=== PATIENT | female | born 1965 | race Caucasian/White ===

== ENCOUNTER → 2020-04-02 | Outpatient (CLI) | payer OTHER ==
--- NOTE | 2020-04-02 13:29 | MR ---
EXAMINATION TYPE: MR tspine/lspine wo con DATE OF EXAM: 04/02/2020 COMPARISON: None HISTORY: Dorsalgia, pain lower left leg, pain between shoulders TECHNIQUE: Multiplanar, multisequence imaging of the thoracic and lumbar spine is performed without I V contrast. FINDINGS: Thoracic spine MRI: There is a spinal curvature convex right centered at the midthoracic level, there is multilevel spondylosis present, minimal endplate discogenic marrow signal changes. Some loss of d isc height signal is present at T5-6, T6-7, T7-8. There is no significant spinal stenosis or foramina l encroachment. Thoracic cord signal is normal. Thoracic vertebral bodies show preserved height. T6-7 there is a left posterior paracentral disc herniation causing anterolateral mass effect on the t hecal sac, possibly contact with the thoracic cord. T7-8 and T8-9 shows posterior extension of disc bulge causing mild anterior mass effect on the thecal sac. Mild facet arthropathy changes are present at the lower thoracic spine. IMPRESSION: Spinal curvature, degenerative disc disease and facet arthropathy Lumbar spine MRI: Lumbar vertebral bodies show preserved height and alignment. There is loss of disc height signal greatest at L5-S1, is associated endplate discogenic marrow signal change. The conus is at L1 shows an unremarkable appearance. No significant spinal stenosis. L5-S1: There is a posterior central disc bulge causing mild anterior mass effect on the thecal sac. F acet arthropathy changes are present. Circumferential extension of an point disc complex encroaches u michael the neural foramina. L4-5: Facet arthropathy with hypertrophy ligamentum flavum causes posterior lateral mass effect on th e thecal sac. Circumferential disc bulge causes some foraminal encroachment greater on the right. Mil d anterior mass effect on the thecal sac due to posterior disc bulge. L3-4, L2-3, L1-2: Unremarkable IMPRESSION: Degenerative disc disease and facet arthropathy.
== END | disposition home or self-care (01) ==
LOC: RADMRIMAIN 08:59
PROVIDERS: ATTEND Physician Assistant
DX: M51.34 Other intervertebral disc degeneration, thoracic region (principal); M51.36 Other intervertebral disc degeneration, lumbar region; M47.814 Spondylosis without myelopathy or radiculopathy, thoracic region; M47.816 Spondylosis without myelopathy or radiculopathy, lumbar region; M43.8X4 Other specified deforming dorsopathies, thoracic region
CPT/HCPCS: 72146; 72148

== ENCOUNTER 2023-03-16 13:57 | Emergency (ER) | payer OTHER ==
--- NOTE | 2023-03-16 14:23 | ED ---
Back Pain HPI - General Chief Complaint: Back Pain/Injury Stated Complaint: Back pain Time Seen by Provider: 03/16/23 14:20 Source: patient, RN notes reviewed Mode of arrival: ambulatory Limitations: no limitations - History of Present Illness Initial Comments: This is a 57 year old female who presents to the emergency department for back pain and right shoulder stiffness. She follows with neurology for chronic back pain related to multiple slipped discs in the thoracic spine. Every once in a while she states that she develops a tightness or a "knot" on her right side. She typically takes Advil for pain relief, however it does not manage that pain well, and she is worried about something else causing her symptoms. Denies any new injuries or loss of bowel/bladder control. Also denies any chest pain or shortness of breath. MD Complaint: back pain - Related Data Previous Rx's Medication Instructions Recorded Lidocaine 5% Patch [Lidoderm 5% 1 patch TOPICAL DAILY PRN #30 patch 03/16/23 Patch] Orphenadrine [Norflex] 100 mg PO Q12H PRN #30 tab 03/16/23 Allergies Allergy/AdvReac Type Severity Reaction Status Date / Time No Known Allergies Allergy Verified 03/16/23 14:12 Review of Systems ROS Statement: Those systems with pertinent positive or pertinent negative responses have been documented in the HPI. ROS Other: All systems not noted in ROS Statement are negative. Past Medical History Additional Past Medical History / Comment(s): Thoracic/back issues History of Any Multi-Drug Resistant Organisms: None Reported Past Surgical History: Section Past Psychological History: No Psychological Hx Reported Smoking Status: Current some day smoker Past Alcohol Use History: None Reported Past Drug Use History: None Reported General Exam - General Exam Comments Initial Comments: Visual Physical Exam Vital signs reviewed General: Well-appearing, nontoxic, no acute distress. Head: Normocephalic, atraumatic Eyes: PERRLA, EOMI ENT: Airway patent Chest: Nonlabored breathing Skin: No visual rash, normal skin tone Neuro: Alert and oriented 3 Musculoskeletal: No gross abnormalities Limitations: no limitations General appearance: alert, in no apparent distress Head exam: Present: atraumatic, normocephalic, normal inspection Respiratory exam: Present: normal lung sounds bilaterally. Absent: respiratory distress, wheezes, rales, rhonchi, stridor Cardiovascular Exam: Present: regular rate, normal rhythm, normal heart sounds. Absent: systolic murmur, diastolic murmur, rubs, gallop, clicks GI/Abdominal exam: Present: soft, normal bowel sounds. Absent: distended, tenderness, guarding, rebound, rigid Back exam: Present: normal inspection, full ROM. Absent: tenderness, CVA tenderness (R), CVA tenderness (L) Neurological exam: Present: alert, oriented X3, CN II-XII intact Psychiatric exam: Present: normal affect, normal mood Skin exam: Present: warm, dry, intact, normal color. Absent: rash Course Vital Signs 03/16/23 03/16/23 03/16/23 14:08 16:35 18:04 Temperature 98.1 F 99.0 F 98.6 F Pulse Rate 88 72 81 Respiratory 16 18 16 Rate Blood Pressure 164/99 168/93 158/96 O2 Sat by Pulse 100 100 97 Oximetry Medical Decision Making - Medical Decision Making This is a 57 year old female who presents to the emergency department for back pain. Was pt. sent in by a medical professional or institution? @ -No Did you speak to anyone other than the patient for history? @ -No Did you review nursing and triage notes? @ -Yes, and I agree, it is accurate with regards to the patient's symptoms. Were old charts reviewed? @ -No Differential Diagnosis? @ -Differential Back Pain: Strain, zoster, cauda equina syndrome, epidural abscess, vertebral osteomyelitis, discitis, fracture, subluxation, disc herniation, DJD, spinal stenosis, dissection, AAA, pancreatitis, peptic ulcer disease, pyelonephritis, kidney stone, this is not meant to be an all-inclusive list. EKG interpreted by me (3pts min.)? @ -Not obtained X-rays interpreted by me (1pt min.)? @ -X-ray of the right rib cage with PA chest and thoracic spine obtained. My interpretation identifies no acute fractures on any of the imaging. CT interpreted by me (1pt min.)? @ -Not obtained U/S interpreted by me (1pt. min.)? @ -Not obtained What testing was considered but not performed? (CT, X-rays, U/S, labs)? Why? @ -None What meds were considered but not given? Why? @ -None Did you discuss the management of the patient with other professionals? @ -No Did you reconcile home meds? @ -No Was smoking cessation discussed for >3mins.? @ -No Was critical care preformed (if so, how long)? @ -No Were there social determinants of health that impacted care today? How? (Homelessness, low income, unemployed, alcoholism, drug addiction, transportation, low edu. Level, literacy, decrease access to med. care, [facility], rehab)? @ -No Was there de-escalation of care discussed even if they declined? (Discuss DNR or withdrawal of care, Hospice)? @ -No What co-morbidities impacted this encounter? (DM, HTN, Smoking, COPD, CAD, Cancer, CVA, Hep., AIDS, mental health diagnosis, sleep apnea, morbid obesity)? @ -Chronic back pain Was patient admitted / discharged? @ -Discharged. X-ray of the right rib cage, PA chest, and thoracic spine obtained revealing degenerative changes without any acute process. Symptoms well controlled with Toradol, Norflex, and a lidocaine patch in the emergency department, and the patient felt stable for discharge home. Rx for Norflex and lidocaine patches provided with dosing instructions reviewed. Advised she continue to take this with OTC Advil and Tylenol and follow up with her neurologist. Undiagnosed new problem with uncertain prognosis? @ -None Drug Therapy requiring intensive monitoring for toxicity (Heparin, Nitro, Insulin, Cardizem)? @ -None Were any procedures done? @ -None Diagnosis/symptom? @ -Side pain Acute, or Chronic, or Acute on Chronic? @ -Acute Uncomplicated (without systemic symptoms) or Complicated (systemic symptoms)? @ -Uncomplicated Side effects of treatment? @ -None Exacerbation, Progression, or Severe Exacerbation] @ -Not applicable Poses a threat to life or bodily function? @ -No Return precautions reviewed in depth, the patient is instructed to return to the emergency department with any new, worsening, or concerning symptoms. Patient verbalized understanding. This case was discussed in detail with the attending ED physician, Dr. Nair. Presentation, findings, and treatment plan discussed in detail as well. - Radiology Data Radiology results: report reviewed, image reviewed Disposition Clinical Impression: Side pain, Chronic back pain Disposition: HOME SELF-CARE Instructions (If sedation given, give patient instructions): Chronic Back Pain (DC) Additional Instructions: Return to the emergency department with any new, worsening, or concerning symptoms. Continue to take the Advil at home for pain relief. You may take this with Tylenol as well. You can start with a half tablet of the Norflex, taken up to twice daily. Increase to a full tablet if needed. The lidocaine patches can also be applied daily. Follow up with your primary care provider in 1-2 days. Prescriptions: Lidocaine 5% Patch [Lidoderm 5% Patch] 1 patch TOPICAL DAILY PRN #30 patch PRN Reason: Pain Orphenadrine [Norflex] 100 mg PO Q12H PRN #30 tab PRN Reason: Pain Is patient prescribed a controlled substance at d/c from ED?: No Referrals: Manuel Arellano MD [Primary Care Provider] - 1-2 days
[2023-03-16] MEDS ORDERED: ORPHENADRINE 30 MG/ML 2 ML VIAL IVP STA (16:49)
[2023-03-16] MEDS ORDERED: KETOROLAC 15 MG/ML 1 ML VIAL IVP STA (16:49)
[2023-03-16] MEDS ORDERED: LIDOCAINE 4% PATCH TOPICAL ONE (16:50)
--- NOTE | 2023-03-16 17:41 | XR ---
EXAMINATION TYPE: XR ribs RT w pa chest xray DATE OF EXAM: 03/16/2023 5:31 PM CLINICAL INDICATION:Female, 57 years old with history of Pain; COMPARISON: Same day radiographs TECHNIQUE: XR ribs RT w pa chest xray; Frontal and oblique views of the ribs with frontal chest radio graph. FINDINGS: The ribs have a normal appearance. No evidence of fracture. Overall, the lungs are clear. The cardiac silhouette is normal in size. The remaining osseous structures are intact. IMPRESSION: No acute osseous pathology.
--- NOTE | 2023-03-16 17:43 | XR ---
EXAMINATION TYPE: XR thoracic spine complete DATE OF EXAM: 03/16/2023 5:31 PM CLINICAL INDICATION:Female, 57 years old with history of Pain; [facility] COMPARISON: None TECHNIQUE: XR thoracic spine complete views of the thoracic spine in Frontal and lateral projections. FINDINGS: No evidence of acute fracture. There is scattered multilevel disk space narrowing without loss of ve rtebral body height. There is normal alignment of the thoracic vertebral bodies. Scattered osteophyte formation along the anterior and lateral aspects of the vertebral bodies. Neural foramen are patent given limitations of this exam. Spinal canal appears patent. IMPRESSION: 1. No acute osseous pathology. 2. Mild degeneration changes throughout the spine.
[2023-03-16 18:17] VITALS: BP 158/96; PULSE 81; RESP 16; TEMP 98.6
== END 2023-03-16 18:20 | disposition home or self-care (01) ==
LOC: EC 13:57
DX: G89.29 Other chronic pain (principal); M47.814 Spondylosis without myelopathy or radiculopathy, thoracic region; F17.200 Nicotine dependence, unspecified, uncomplicated
CPT/HCPCS: 99283 ×2; 96374 ×2; 96375 ×2; 71101; 72072; J2360; J1885

== ENCOUNTER 2023-09-09 14:16 | Emergency (ER) | payer OTHER ==
[2023-09-09 14:45] VITALS: TEMP 98
[2023-09-09] MEDS: KETOROLAC 15 MG/ML 1 ML VIAL IVP STA (16:12)
[2023-09-09] MEDS: SODIUM CHLORIDE 0.9% 500 ML 500 ML IV STA (16:12)
[2023-09-09 16:20] LABS: Basophils # (A) 0.1 k/uL (0-0.2); Basophils % (A) 1 %; Eosinophils # (A) 0.1 k/uL (0-0.7); Eosinophils % (A) 1 %; HGB 13.5 gm/dL (11.4-16.0); Lymphocytes # (A) 1.9 k/uL (1.0-4.8); Lymphocytes % (A) 28 %; MCH 29.5 pg (25.0-35.0); MCV 89.3 fL (80.0-100.0); Mean Platelet Volume 6.9; Monocytes # (A) 0.4 k/uL (0-1.0); Monocytes % (A) 6 %; Neutrophils # (A) 4.1 k/uL (1.3-7.7); Neutrophils % (A) 61 %; Platelet Count 264 k/uL (150-450); RBC 4.59 m/uL (3.80-5.40); WBC 6.8 k/uL (3.8-10.6)
[2023-09-09 16:28] LABS: INR 0.9 (<1.2); Partial Thromboplastin Time 24.2 sec (22.0-30.0); Prothrombin Time 10.3 sec (10.0-12.5)
[2023-09-09 16:32] LABS: ALT 14 U/L (4-34); AST 27 U/L (14-36); African American GFR (CKD) >90 (>60 ml/min/1.73 sqM); Albumin 4.8 g/dL (3.5-5.0); Alkaline Phosphatase 76 U/L (38-126); Anion Gap 7 mmol/L; Blood Urea Nitrogen 8 mg/dL (7-17); Carbon Dioxide 25 mmol/L (22-30); Chloride 108 mmol/L (98-107); Glucose 95 mg/dL (74-99); Magnesium 2.1 mg/dL (1.6-2.3); Non-African American GFR(CKD) 88 (>60 ml/min/1.73 sqM); Phosphorus 3.4 mg/dL (2.5-4.5); Potassium 4.1 mmol/L (3.5-5.1); Sodium 140 mmol/L (137-145); Total Bilirubin 0.5 mg/dL (0.2-1.3); Total Protein 7.5 g/dL (6.3-8.2)
[2023-09-09 16:41] LABS: NT-Pro-B-Type Natriuretic Pept 90 pg/mL
--- NOTE | 2023-09-09 17:16 | XR ---
EXAMINATION TYPE: XR chest 2V DATE OF EXAM: 09/09/2023 COMPARISON: 03/16/2023 HISTORY: 57-year-old female with weakness and neck pain TECHNIQUE: PA and lateral views FINDINGS: The cardiomediastinal silhouette, aorta, and pulmonary vasculature are within normal limits. Lungs an d pleural spaces are clear. IMPRESSION: No acute cardiopulmonary process.
--- NOTE | 2023-09-09 17:16 | ED ---
Chest Pain HPI - General Chief Complaint: Neck Pain/Injury Stated Complaint: Neck Pain Time Seen by Provider: 09/09/23 15:26 Source: patient, RN notes reviewed, old records reviewed Mode of arrival: ambulatory Limitations: no limitations - History of Present Illness Initial Comments: This is a 57-year-old female to the ER for evaluation of neck pain concern for chest pain. Patient states she woke up with worsening symptoms in her neck left-sided neck back going down into her left side of her chest. Patient has no history of heart disease no high blood pressure or cholesterol no travel history no sick contacts no other complaints. MD Complaint: chest pain -: days(s) Onset: during rest, during exertion Pain Location: left chest Pain Radiation: LUE Severity: mild Severity scale (1-10): 3 Quality: tightness, heaviness Consistency: constant Improves With: nothing Worsens With: nothing Context: recent illness Anginal Symptoms: diaphoresis, dyspnea Other Symptoms: cough, leg swelling Treatments Prior to Arrival: none - Related Data Previous Rx's Medication Instructions Recorded Lidocaine 5% Patch [Lidoderm 5% 1 patch TOPICAL DAILY PRN #30 patch 03/16/23 Patch] Orphenadrine [Norflex] 100 mg PO Q12H PRN #30 tab 03/16/23 Allergies Allergy/AdvReac Type Severity Reaction Status Date / Time No Known Allergies Allergy Verified 09/09/23 14:44 Review of Systems ROS Statement: Those systems with pertinent positive or pertinent negative responses have been documented in the HPI. ROS Other: All systems not noted in ROS Statement are negative. EKG Findings - EKG Comments: EKG Findings:: EKG is sinus 62 AR 144 QRS 87 QTc 407 - EKG Results: EKG: interpreted by JESUSITA Past Medical History Additional Past Medical History / Comment(s): Thoracic/back issues History of Any Multi-Drug Resistant Organisms: None Reported Past Surgical History: Section Past Psychological History: No Psychological Hx Reported Smoking Status: Current some day smoker Past Alcohol Use History: None Reported Past Drug Use History: None Reported General Exam Limitations: no limitations General appearance: alert, in no apparent distress Head exam: Present: atraumatic, normocephalic, normal inspection Eye exam: Present: normal appearance, PERRL, EOMI. Absent: scleral icterus, conjunctival injection, periorbital swelling ENT exam: Present: normal exam, mucous membranes moist Neck exam: Present: normal inspection. Absent: tenderness, meningismus, lymphadenopathy Respiratory exam: Present: normal lung sounds bilaterally. Absent: respiratory distress, wheezes, rales, rhonchi, stridor Cardiovascular Exam: Present: regular rate, normal rhythm, normal heart sounds. Absent: systolic murmur, diastolic murmur, rubs, gallop, clicks GI/Abdominal exam: Present: soft, normal bowel sounds. Absent: distended, tenderness, guarding, rebound, rigid Extremities exam: Present: normal inspection, full ROM, normal capillary refill. Absent: tenderness, pedal edema, joint swelling, calf tenderness Back exam: Present: normal inspection Neurological exam: Present: alert, oriented X3, CN II-XII intact Psychiatric exam: Present: normal affect, normal mood Skin exam: Present: warm, dry, intact, normal color. Absent: rash Course Vital Signs 09/09/23 09/09/23 09/09/23 14:42 15:36 17:32 Temperature 98.0 F 98.0 F Pulse Rate 81 64 Respiratory 18 20 18 Rate Blood Pressure 158/77 156/79 O2 Sat by Pulse 99 98 Oximetry - Reevaluation(s) Reevaluation #1: Medical records reviewed Reevaluation #2: Symptoms unchanged Reevaluation #3: Patient informed of results questions answered Reevaluation #4: Was pt. sent in by a medical professional or institution (, PA, CARPET YARN WINDER OPERATOR, urgent care, hospital, or jail...) When possible be specific @ -no Did you speak to anyone other than the patient for history (EMS, parent, family, police, friend...)? What history was obtained from this source @ -no Did you review nursing and triage notes (agree or disagree)? Why? @ -agree Are old charts reviewed (outside hosp., previous admission, EMS record, old EKG, old radiological studies, urgent care reports/EKG's, jail records)? Report findings @ -yes Differential Diagnosis (chest pain, altered mental status, abdominal pain women, abdominal pain men, vaginal bleeding, weakness, fever, dyspnea, syncope, headache, dizziness, GI bleed, back pain, seizure, CVA, palpatations, mental health, musculoskeletal)? @ -prior EKG interpreted by me (3pts min.). @ -yes X-rays interpreted by me (1pt min.). @ -yes negative for acute disease CT interpreted by me (1pt min.). @ -no U/S interpreted by me (1pt. min.). @ -no What testing was considered but not performed or refused? (CT, X-rays, U/S, labs)? Why? @ -none What meds were considered but not given or refused? Why? @ -none Did you discuss the management of the patient with other professionals (professionals i.e. , PA, CARPET YARN WINDER OPERATOR, lab, RT, psych nurse, socially responsible investment adviser, importer exporter, teacher, international first officer, rn field case manager)? Give summary @ -no Was smoking cessation discussed for >3mins.? @ -no Was critical care preformed (if so, how long)? @ -no Were there social determinants of health that impacted care today? How? (Homelessness, low income, unemployed, alcoholism, drug addiction, transportation, low edu. Level, literacy, decrease access to med. care, assisted, rehab)? @ -none Was there de-escalation of care discussed even if they declined (Discuss DNR or withdrawal of care, Hospice)? DNR status @ -no What co-morbidities impacted this encounter? (DM, HTN, Smoking, COPD, CAD, Cancer, CVA, ARF, Chemo, Hep., AIDS, mental health diagnosis, sleep apnea, morbid obesity)? @ -none Was patient admitted / discharged? Hospital course, mention meds given and route, prescriptions, significant lab abnormalities, going to OR and other pertinent info. @ - 57 female to ER for neck pain neck muscle strain will concern for heart. No acute findings here in the ER patient can be discharged home Discharged Undiagnosed new problem with uncertain prognosis? @ -no Drug Therapy requiring intensive monitoring for toxicity (Heparin, Nitro, Insulin, Cardizem)? @ -no Were any procedures done? @ -no Diagnosis/symptom? @ -Neck pain sprain Acute, or Chronic, or Acute on Chronic? @ -Acute Uncomplicated (without systemic symptoms) or Complicated (systemic symptoms)? @ -Complicated Side effects of treatment? @ -no Exacerbation, Progression, or Severe Exacerbation? @ -exacerbation Poses a threat to life or bodily function? How? (Chest pain, [place], ID, pneumonia, PE, COPD, DKA, ARF, appy, cholecystitis, CVA, Diverticulitis, Homicidal, Suicidal, threat to staff... and all critical care pts) @ -yes chest pain neck pain neck pain sprain Reevaluation #5: Differential Chest Pain: Stable Angina, Unstable Angina, STEMI, NSTEMI Aortic Dissection, Pneumothorax, Musculoskeletal, Esophageal Spasm GERD, Cholecystitis, Pancreatitis, Zoster, this is not meant to be an all-inclusive list. Chest Pain MDM - MDM 57 female to ER for neck pain neck muscle strain will concern for heart. No acute findings here in the ER patient can be discharged home Disposition Clinical Impression: Strain of neck muscle, Chest pain, Neck pain Disposition: HOME SELF-CARE Instructions (If sedation given, give patient instructions): Cervical Strain (ED), Neck Pain (ED) Is patient prescribed a controlled substance at d/c from ED?: No Referrals: Manuel Arellano MD [Primary Care Provider] - 1-2 days Time of Disposition: 17:20
[2023-09-09 17:34] VITALS: BP 156/79; PULSE 64; RESP 18
== END 2023-09-09 17:38 | disposition home or self-care (01) ==
LOC: EC 14:16
DX: S16.1XXA Strain of muscle, fascia and tendon at neck level, initial encounter (principal); R07.89 Other chest pain; F17.200 Nicotine dependence, unspecified, uncomplicated; X50.0XXA Overexertion from strenuous movement or load, initial encounter
CPT/HCPCS: 36415; 93005; 83880; 80053; 83735; 84100; 84484; 85025; 85610; 85730; 71046; 99284; 96374; 96361; J1885

== ENCOUNTER 2024-07-24 21:28 | Emergency (ER) | payer OTHER ==
[2024-07-24 21:43] VITALS: RESP 18
--- NOTE | 2024-07-24 22:49 | ED ---
Skin/Abscess/FB HPI - General Chief complaint: Skin/Abscess/Foreign Body Stated complaint: Insect bite Time Seen by Provider: 07/24/24 21:54 Source: patient, RN notes reviewed Mode of arrival: ambulatory Limitations: no limitations - History of Present Illness Initial comments: 58-year-old female presented the ER for evaluation of bug bites. Patient states she was working out in her garden yesterday wearing loose shorts. She believes she was bitten by a mosquito on her buttocks. She states throughout the night she has been having irritation and itchiness to her bilateral buttocks. She attempted to look in the mirror and noticed 2 small bumps with surrounding redness. She has taken an old prescription of hydroxyzine for symptom control. Patient is also concerned of infection as there is surrounding redness. She denies any drainage, fevers or chills. No other complaints. Nondiabetic no history of MRSA - Related Data Previous Rx's Medication Instructions Recorded Lidocaine 5% Patch [Lidoderm 5% 1 patch TOPICAL DAILY PRN #30 patch 03/16/23 Patch] Orphenadrine [Norflex] 100 mg PO Q12H PRN #30 tab 03/16/23 Cephalexin [Keflex] 500 mg PO Q6HR 7 Days #28 cap 07/24/24 hydrOXYzine HCL 25 mg PO Q8HR PRN #15 tab 07/24/24 Allergies Allergy/AdvReac Type Severity Reaction Status Date / Time No Known Allergies Allergy Verified 09/09/23 14:44 Review of Systems ROS Statement: Those systems with pertinent positive or pertinent negative responses have been documented in the HPI. ROS Other: All systems not noted in ROS Statement are negative. Past Medical History Additional Past Medical History / Comment(s): Thoracic/back issues History of Any Multi-Drug Resistant Organisms: None Reported Past Surgical History: Section Past Psychological History: No Psychological Hx Reported Smoking Status: Current some day smoker Past Alcohol Use History: None Reported Past Drug Use History: Marijuana General Exam Limitations: no limitations General appearance: alert, in no apparent distress Respiratory exam: Present: normal lung sounds bilaterally. Absent: respiratory distress, wheezes, rales, rhonchi, stridor Cardiovascular Exam: Present: regular rate, normal rhythm, normal heart sounds. Absent: systolic murmur, diastolic murmur, rubs, gallop, clicks Neurological exam: Present: alert, oriented X3, CN II-XII intact Skin exam: Present: warm, dry, intact, normal color, other (2 0.5 cm minimal central ulcerations with surrounding erythema to right buttock. No fluctuance or purulent drainage. There is 1 single similar jania to left buttock) Course Vital Signs 07/24/24 07/24/24 21:40 23:17 Temperature 99.1 F 98.1 F Pulse Rate 90 79 Respiratory 18 18 Rate Blood Pressure 157/99 134/79 O2 Sat by Pulse 98 98 Oximetry Medical Decision Making - Medical Decision Making Was pt. sent in by a medical professional or institution (, [facility], [employer]ENDING [employer]ACHINE [employer], urgent care, hospital, or shelter...) When possible be specific @ -No Did you speak to anyone other than the patient for history (EMS, parent, family, police, friend...)? What history was obtained from this source @ -No Did you review nursing and triage notes (agree or disagree)? Why? @ -I reviewed and agree with nursing and triage notes Were old charts reviewed (outside hosp., previous admission, EMS record, old EKG, old radiological studies, urgent care reports/EKG's, shelter records)? Report findings @ -No old charts were reviewed Differential Diagnosis (chest pain, altered mental status, abdominal pain women, abdominal pain men, vaginal bleeding, weakness, fever, dyspnea, syncope, headache, dizziness, GI bleed, back pain, seizure, CVA, palpatations, mental health, musculoskeletal)? @ -Bug bite, cellulitis, abscess, lymphangitis... This list is not meant to be all-inclusive EKG interpreted by me (3pts min.). @ -None done X-rays interpreted by me (1pt min.). @ -None done CT interpreted by me (1pt min.). @ -None done U/S interpreted by me (1pt. min.). @ -None done What testing was considered but not performed or refused? (CT, X-rays, U/S, labs)? Why? @ -None What meds were considered but not given or refused? Why? @ -None Did you discuss the management of the patient with other professionals (professionals i.e. , [facility], VENDING MACHINE REFILLER, lab, RT, psych nurse, social service coordinator, information receptionist, teacher, gifts officer, piano case maker)? Give summary @ -No Was smoking cessation discussed for >3mins.? @ -No Was critical care preformed (if so, how long)? @ -No Were there social determinants of health that impacted care today? How? (Homelessness, low income, unemployed, alcoholism, drug addiction, transportation, low edu. Level, literacy, decrease access to med. care, usp, rehab)? @ -No Was there de-escalation of care discussed even if they declined (Discuss DNR or withdrawal of care, Hospice)? DNR status @ -No What co-morbidities impacted this encounter? (DM, HTN, Smoking, COPD, CAD, Cancer, CVA, ARF, Chemo, Hep., AIDS, mental health diagnosis, sleep apnea, morbid obesity)? @ -None Was patient admitted / discharged? Hospital course, mention meds given and route, prescriptions, significant lab abnormalities, going to OR and other pertinent info. @ -Discharge. 58-year-old female presented the ER for evaluation of bug bite. Exam concerning of 3 bug bites to bilateral buttocks with surrounding erythema for which patient will be started on Keflex for infection prophylaxis. No purulent drainage or drainable abscess. NO hx MRSA. Patient provided prescription of hydroxyzine for symptom control. Patient discharged in stable condition with follow-up to PCP. Return parameters discussed. Patient verbally expressed understanding agree with care plan. Case discussed with ED attending, Dr. Bassett. Undiagnosed new problem with uncertain prognosis? @ -No Drug Therapy requiring intensive monitoring for toxicity (Heparin, Nitro, Insulin, Cardizem)? @ -No Were any procedures done? @ -No Diagnosis/symptom? @ -Bug bite Acute, or Chronic, or Acute on Chronic? @ -Acute Uncomplicated (without systemic symptoms) or Complicated (systemic symptoms)? @ -Uncomplicated Side effects of treatment? @ -No Exacerbation, Progression, or Severe Exacerbation? @ -No Poses a threat to life or bodily function? How? (Chest pain, USA, ID, pneumonia, PE, COPD, DKA, ARF, appy, cholecystitis, CVA, Diverticulitis, Homicidal, Suicidal, threat to staff... and all critical care pts) @ -No Disposition Clinical Impression: Bug bite Disposition: HOME SELF-CARE Condition: Stable Additional Instructions: Follow-up with PCP. Return to the ER for any new or worsening symptoms. Prescriptions: hydrOXYzine HCL 25 mg PO Q8HR PRN #15 tab PRN Reason: Itching Cephalexin [Keflex] 500 mg PO Q6HR 7 Days #28 cap Is patient prescribed a controlled substance at d/c from ED?: No Referrals: Manuel Arellano MD [Primary Care Provider] - 1-2 days Time of Disposition: 22:48
[2024-07-24] MEDS: hydrOXYzine HCL 25 MG TAB PO STA (23:14)
[2024-07-24 23:18] VITALS: BP 134/79; PULSE 79; TEMP 98.1
== END 2024-07-24 23:18 | disposition home or self-care (01) ==
LOC: EC 21:28
DX: S30.860A Insect bite (nonvenomous) of lower back and pelvis, initial encounter (principal); L98.419 Non-pressure chronic ulcer of buttock with unspecified severity; F17.200 Nicotine dependence, unspecified, uncomplicated; W57.XXXA Bitten or stung by nonvenomous insect and other nonvenomous arthropods, initial encounter
CPT/HCPCS: 99282